=== PATIENT | female | born 1965 | race Caucasian/White ===

== ENCOUNTER 2021-10-11 16:09 | Emergency (ER) | payer BC ==
[~2021-10-11] VITALS: Ht 165.1 cm; Wt 78.5 kg
[2021-10-11] MEDS ORDERED: VITAMIN D3125 MC3 (17:03)
== END 2021-10-11 20:35 | disposition home or self-care (01) ==
LOC: ED 16:09
DX: R51.9 Headache, unspecified (principal); E78.5 Hyperlipidemia, unspecified; Z88.0 Allergy status to penicillin; Z88.5 Allergy status to narcotic agent
CPT/HCPCS: 36415; 70450; 80053; 85025; 85651; 96374; 96375; 99284-25; A9270; J1100; J1170; J1885

== ENCOUNTER 2022-12-19 15:49 | Emergency (ER) | payer BC ==
[~2022-12-19] VITALS: Ht 165.1 cm; Wt 93.0 kg
[~2022-12-19 15:49] MED LIST: VITAMIN D3125 MC3
[2022-12-19] MEDS ORDERED: PREDNISONE20 MG PO (16:54)
[2022-12-19 17:00] VITALS: BP 134/56
== END 2022-12-19 17:00 | disposition home or self-care (01) ==
LOC: ED 15:49
DX: M54.32 Sciatica, left side (principal); E78.5 Hyperlipidemia, unspecified; Z88.0 Allergy status to penicillin; Z88.5 Allergy status to narcotic agent; Z79.899 Other long term (current) drug therapy
CPT/HCPCS: 96372; 99283; J1885; J7512

== ENCOUNTER 2024-04-24 11:31 | Emergency (ER) | payer BC ==
[~2024-04-24] VITALS: Ht 165.1 cm; Wt 91.3 kg
[~2024-04-24 11:31] MED LIST changes: +PREDNISONE20 MG PO
[2024-04-24] MEDS ORDERED: NASAL DECONGEST30 MG PO (12:57)
[2024-04-24] MEDS ORDERED: VENTOLIN HFA18 GM INH (12:57)
[2024-04-24 13:06] VITALS: BP 152/72
== END 2024-04-24 13:06 | disposition home or self-care (01) ==
LOC: ED 11:31
DX: J06.9 Acute upper respiratory infection, unspecified (principal); Z88.0 Allergy status to penicillin; Z88.5 Allergy status to narcotic agent; Z79.899 Other long term (current) drug therapy
CPT/HCPCS: 99283